=== PATIENT | female | born 1995 | race Caucasian/White ===

== ENCOUNTER 2018-06-29 14:54 | Emergency (ER) | payer MEDICAID, OTHER ==
[~2018-06-29] VITALS: Ht 167.6 cm; Wt 63.5 kg
[2018-06-29 16:22] VITALS: BP 106/64
[2018-06-29] MEDS ORDERED: IBUPROFEN 800 MG TAB PO ONE (17:00)
== END 2018-06-29 17:09 | disposition home or self-care (01) ==
LOC: ER 14:54
DX: M25.511 Pain in right shoulder (principal); Z88.8 Allergy status to other drugs, medicaments and biological substances
CPT/HCPCS: 73030; 81025